=== PATIENT | male | born 1935 ===

== ENCOUNTER 2017-06-03 02:38 | Emergency (ER) | payer MEDICARE, OTHER ==
[2017-06-03 02:39] VITALS: BMI 21.5
[2017-06-03 02:51] VITALS: PULSE 86; O2SAT 99
[2017-06-03] MEDS ORDERED: Tetanus/Diphtheria Toxoids 0.5 ml Syringe IM ONE ×2 (03:31→03:40)
[2017-06-03] MEDS ORDERED: Bacitracin 500 Units/gm Oint Foilpak UD ONE (03:46)
[2017-06-03] MEDS ORDERED: Bacitracin 500 Units/gm Oint Foilpak UD TOP STA (04:03)
[2017-06-03] MEDS ORDERED: Lidocaine 1% w Epi 1:100,000 Inj INJ STA (04:03)
--- NOTE | 2017-06-03 04:37 | CT ---
EXAM: CT Head Without Intravenous Contrast CLINICAL HISTORY: 82 years old, male; Pain; Headache; Additional info: Etoh/injury TECHNIQUE: Axial computed tomography images of the head/brain without intravenous contrast. All CT scans at this facility use one or more dose reduction techniques, viz.: automated exposure control; ma/kV adjustment per patient size (including targeted exams where dose is matched to indication; i.e. head); or iterative reconstruction technique. 368 images are submitted.Sagittal , axial and coronal MPR reformatted images are submitted. COMPARISON: No relevant prior studies available. FINDINGS: Brain: Cerebral and cerebellar volume loss. Patchy hypodensity is seen in the periventricular and subcortical white matter. No hemorrhage. Ventricles: Unremarkable. No ventriculomegaly. Bones/joints: There is acute comminuted nasal fracture. Soft tissues: There is nasal and nasofrontal soft tissue swelling and hematoma. Sinuses: Patchy sinus disease. Mastoid air cells: Unremarkable. No mastoid effusion. Orbits: The globes and lens are intact. Other findings: There is obscuration of right ostiomeatal units with mucosal thickening. The left ostiomeatal unit is patent. IMPRESSION: 1. There is nasal and nasofrontal soft tissue swelling and hematoma. 2. There is acute comminuted nasal fracture. 3.No evidence of intracranial hemorrhage, midline shift or mass effect is noted.
--- NOTE | 2017-06-03 04:47 | CT ---
EXAM: CT Maxillofacial and mandible Without Intravenous Contrast CLINICAL HISTORY: 82 years old, male; Pain; Eye pain and face pain and nose pain; Bilateral; Additional info: Etoh/injury TECHNIQUE: Axial computed tomography images of the face and mandible without intravenous contrast. All CT scans at this facility use one or more dose reduction techniques, viz.: automated exposure control; ma/kV adjustment per patient size (including targeted exams where dose is matched to indication; i.e. head); or iterative reconstruction technique. 703 images are submitted. Axial images are submitted in soft tissue and bone windows. CT maxillofacial with mandible Coronal and sagittal reformatted images were created and reviewed. COMPARISON: No relevant prior studies available. FINDINGS: Bones/joints: There is acute comminuted nasal fracture. Mandibular partial denture in place. Multilevel degenerative disc disease. Facet arthritis. Soft tissues: There is nasal and nasal frontal soft tissue swelling and possible laceration. Lymph nodes: Submental and submandibular lymph nodes. Orbits: Unremarkable. Sinuses: Mild patchy sinus disease. No air-fluid levels. IMPRESSION: 1. There is nasal and nasal frontal soft tissue swelling and possible laceration. 2. There is acute comminuted nasal fracture.
--- NOTE | 2017-06-03 04:59 | C.PDOC ---
History Of Present Illness 82 y/o male presents to ED with complaints of 2 lacerations on bridge of nose and abrasion to forehead and cheeks. Patient states he was drinking and walked with his face into a door. Denies LOC, other injuries or any other physical complaints. Time Seen by Provider: 06/03/17 03:11 Chief Complaint (Nursing): Abnormal Skin Integrity History Per: Patient History/Exam Limitations: no limitations Onset/Duration Of Symptoms: Hrs Current Symptoms Are (Timing): Still Present Location Of Injury: Anterior: Face (forehead and cheeks and nose) Quality Of Symptoms: Painful Recent travel outside of the [place]: No Past Medical History Reviewed: Historical Data, Nursing Documentation, Vital Signs Vital Signs: Last Vital Signs Temp 98.1 F 06/03/17 05:07 Pulse 86 06/03/17 05:07 Resp 22 06/03/17 05:07 BP 102/59 L 06/03/17 05:07 Pulse Ox 99 06/03/17 05:07 - Medical History PMH: CAD (hx of CAD s/p cardiac cath more than 1yr ago), Diabetes, HTN Surgical History: No Surg Hx Family History: States: Unknown Family Hx - Social History Hx Alcohol Use: Yes Hx Substance Use: No Review Of Systems Constitutional: Negative for: Fever, Chills Eyes: Negative for: Vision Change Respiratory: Negative for: Shortness of Breath Gastrointestinal: Negative for: Nausea, Vomiting, Diarrhea Skin: Positive for: Other (2 lacerations on bridge of nose, and abrasion to forehead and cheeks) Neurological: Negative for: Weakness, Numbness Physical Exam - Physical Exam Appears: Non-toxic, No Acute Distress Skin: Warm, Dry Head: Atraumatic, Normacephalic, Abrasion (small on forhead and cheeks ) Eye(s): bilateral: Normal Inspection, PERRL, EOMI Nose: No Flaring, Other (1 horizontal laceration on nose about 2cm ) Oral Mucosa: Moist Neck: Supple Chest: Symmetrical, No Tenderness Cardiovascular: Rhythm Regular Respiratory: No Decreased Breath Sounds, No Rales, No Rhonchi, No Wheezing Gastrointestinal/Abdominal: Soft, No Tenderness Extremity: Normal ROM, No Pedal Edema, No Deformity Extremity: Bilateral: Normal Color And Temperature, Normal ROM Neurological/Psych: Oriented x3, Normal Speech, Normal Cognition ED Course And Treatment O2 Sat by Pulse Oximetry: 99 (RA) Pulse Ox Interpretation: Normal - CT Scan/US CT Head Other Rad Studies (CT/US): Read By Radiologist, Radiology Report Reviewed CT/US Interpretation: EXAM: CT Head Without Intravenous Contrast. CLINICAL HISTORY: 82 years old, male; Pain; Headache; Additional info: Etoh/injury. TECHNIQUE: Axial computed tomography images of the head/brain without intravenous contrast. All CT scans at. this facility use one or more dose reduction techniques, viz.: automated exposure control; ma/kV. adjustment per patient size (including targeted exams where dose is matched to indication; i.e. head);. or iterative reconstruction technique. 368 images are submitted.Sagittal , axial and coronal MPR. reformatted images are submitted. COMPARISON: No relevant prior studies available. FINDINGS: Brain: Cerebral and cerebellar volume loss. Patchy hypodensity is seen in the periventricular and. subcortical white matter. No hemorrhage. Ventricles: Unremarkable. No ventriculomegaly. Bones/joints: There is acute comminuted nasal fracture. Soft tissues: There is nasal and nasofrontal soft tissue swelling and hematoma. Sinuses: Patchy sinus disease. Mastoid air cells: Unremarkable. No mastoid effusion. Orbits: The globes and lens are intact. Other findings: There is obscuration of right ostiomeatal units with mucosal thickening. The left. ostiomeatal unit is patent. IMPRESSION: 1. There is nasal and nasofrontal soft tissue swelling and hematoma. 2. There is acute comminuted nasal fracture. 3.No evidence of intracranial hemorrhage, midline shift or mass effect is noted CT Orbits Other Rad Studies (CT/US): Read By Radiologist, Radiology Report Reviewed CT/US Interpretation: EXAM: CT Maxillofacial and mandible Without Intravenous Contrast. CLINICAL HISTORY: 82 years old, male; Pain; Eye pain and face pain and nose pain; Bilateral; Additional info: Etoh/injury. TECHNIQUE: Axial computed tomography images of the face and mandible without intravenous contrast. All CT. scans at this facility use one or more dose reduction techniques, viz.: automated exposure control;. ma/kV adjustment per patient size (including targeted exams where dose is matched to indication; i.e. head) ; or iterative reconstruction technique. 703 images are submitted. Axial images are submitted. in soft tissue and bone windows. CT maxillofacial with mandible. Coronal and sagittal reformatted images were created and reviewed. COMPARISON: No relevant prior studies available. FINDINGS: Bones/joints: There is acute comminuted nasal fracture. Mandibular partial denture in place. Multilevel degenerative disc disease. Facet arthritis. Soft tissues: There is nasal and nasal frontal soft tissue swelling and possible laceration. Lymph nodes: Submental and submandibular lymph nodes. Orbits: Unremarkable. Sinuses : Mild patchy sinus disease. No air-fluid levels. IMPRESSION: 1. There is nasal and nasal frontal soft tissue swelling and possible laceration. 2. There is acute comminuted nasal fracture. Progress Note: Orderede CT head and orbits. Administered Bacitracin, Kelflex, Tenivac, and xylocaine. Laceration - Laceration Repair Bridge of nose Wound Length (In cm): 2 Description Of Wound: Linear Wound Cleansed With: Sterile Saline Anesthesia: Lidocaine 1%, With Epi Wound Examination: Irrigated With Saline, No FB With Wound Exploration, No Tendon Injury With Wound Exploration Wound Closure: Suture (8) Suture Technique And Material Used: Nylon (5-0) Wound Complexity: Simple (well tolerated) Disposition - Disposition Referrals: Zhen Jon MD [Staff Provider] - Disposition: HOME/ ROUTINE Disposition Time: 04:57 Condition: IMPROVED Additional Instructions: Follow up with PMD and ENT specialist. Suture removal in 7-8 days. Return to ED if feel worse. Prescriptions: Amoxicillin/Clavulanate [Augmentin 875 MG-125 MG] 1 tab PO BID #14 tab Bacitracin OINT 1 applic TP TID #45 g Acetaminophen [Tylenol 325mg tab] 2 tab PO Q6 #50 tab Instructions: Laceration Repair With Stitches (DC), Nose Fracture (DC) Forms: [employer] (Amharic) Print Language: [place] - Clinical Impression Clinical Impression: Nasal bone fracture, Facial laceration, Minor head injury - PA / BLUE [employer]MER / Resident Statement MD/DO has reviewed & agrees with the documentation as recorded. - Scribe Statement The provider has reviewed the documentation as recorded by the Jomar Torre All medical record entries made by the Scribcordell were at my direction and personally dictated by me. I have reviewed the chart and agree that the record accurately reflects my personal performance of the history, physical exam, medical decision making, and the department course for this patient. I have also personally directed, reviewed, and agree with the discharge instructions and disposition.
[2017-06-03 05:08] VITALS: BP 102/59; RESP 22; TEMP 98.1
== END 2017-06-03 05:20 | disposition home or self-care (01) ==
LOC: C.ER 02:38
DX: S02.2XXA Fracture of nasal bones, initial encounter for closed fracture (principal); S01.81XA Laceration without foreign body of other part of head, initial encounter; W22.8XXA Striking against or struck by other objects, initial encounter; Z23 Encounter for immunization; I10 Essential (primary) hypertension; E11.9 Type 2 diabetes mellitus without complications; I25.10 Atherosclerotic heart disease of native coronary artery without angina pectoris